=== PATIENT | male | born 1985 | race Two or more races ===

== ENCOUNTER 2021-01-12 09:50 | Emergency (ER) | payer SELFPAY ==
[~2021-01-12] VITALS: Ht 177.8 cm; Wt 77.1 kg
--- NOTE | 2021-01-12 09:50 | NUR ---
PT BIBRA FROM [facility]RIENDS HOUSE C/O OD ON METH, GHB AND OTHER UNKNOWN DRUG. NARCAN 4MG IV GIVEN BY EMS TANK [employer]MIN[employer] GAUGER. PT IS AAOX1. NOT IN RESPIRATORY DISTRESS, HOOKED TO [employer], KEPT RESTED AND COMFORTABLE. WILL CONTINUE TO MONITOR.
--- NOTE | 2021-01-12 09:50 | NUR ---
NARCAN 2MG IVP GIVEN PER .
--- NOTE | 2021-01-12 09:57 | NUR ---
URINE SPECIMEN COLLECTED AND SENT TO LAB.
[2021-01-12] MEDS ORDERED: LORAZEPAM INJ 2 MG/ML VIAL IVP ONE (10:00)
[2021-01-12] MEDS ORDERED: LORAZEPAM INJ 2 MG/ML VIAL ONE (10:03)
--- NOTE | 2021-01-12 10:10 | NUR ---
KATIE [phone] FRIEND
[2021-01-12 10:11] LABS: BILIRUBIN,URINE Negative (NEGATIVE); COLOR,URINE YELLOW (YELLOW); LEUKOCYTE ESTERASE ,URINE Negative (NEGATIVE); NITRITE, URINE Negative (NEGATIVE); PH,URINE 5.5 (5.0-8.0); PROTEIN,URINE Negative (NEGATIVE); UGLUCOSE Negative (NEGATIVE)
[2021-01-12 10:25] LABS: BACTERIA,URINE Rare /HPF (None Seen); RBC,URINE NONE SEEN /HPF (0-2); SQUAMOUS EPITHELIAL CELL,UR Few /HPF (None Seen); WBC,URINE NONE SEEN /HPF (0-3)
--- NOTE | 2021-01-12 10:25 | NUR ---
PHLEB AT BEDSIDE FOR BLOOD DRAW.
[2021-01-12 10:29] LABS: BASOPHILS % (AUTO) 0.3 % (0.0-2.0); EOSINOPHILS % (AUTO) 1.6 % (0.0-6.0); HEMATOCRIT 38 % (39-51); HEMOGLOBIN 12.6 g/dL (13.5-17.5); LYMPHOCYTES # (AUTO) 2.3 /CMM (0.8-4.8); LYMPHOCYTES % (AUTO) 17.1 % (20.0-44.0); MEAN CORPUSCULAR HGB CONC 33 g/dl (31.0-36.0); MEAN CORPUSCULAR VOLUME 95 fL (80-96); MONOCYTES % (AUTO) 7.7 % (2.0-12.0); NEUTROPHILS # (AUTO) 9.8 /CMM (1.8-8.9); NEUTROPHILS % (AUTO) 73.3 % (43.0-81.0); PLATELET COUNT (AUTO) 295 /CMM (150-450); RED BLOOD CELL COUNT(AUTO) 3.96 MIL/uL (4.5-6.0); WHITE BLOOD COUNT (AUTO) 13.3 K/uL (4.3-11.0)
[2021-01-12] MEDS ORDERED: NALOXONE HCL 0.4 MG/ML AMPUL IV ONE (10:30)
[2021-01-12 10:56] LABS: ALANINE AMINOTRANSFERASE 63 U/L (12-78); ALBUMIN 3.4 g/dL (3.4-5.0); ALCOHOL, BLOOD < 3 mg/dL (0-0); ALKALINE PHOSPHATASE 52 U/L (46-116); ASPARTATE AMINOTRANSFERASE 24 U/L (15-37); BILIRUBIN,DIRECT 0.1 mg/dL (0.0-0.2); BILIRUBIN,TOTAL 0.3 mg/dL (0.2-1.0); CARBON DIOXIDE 26 mmol/L (21-32); CHLORIDE 107 mmol/L (98-107); GLUCOSE 103 mg/dL (74-106); SODIUM SERUM 142 mmol/L (136-145); TOTAL PROTEIN, SERUM 6.4 g/dL (6.4-8.2); UREA NITROGEN, BLOOD 15 mg/dL (7-18)
[2021-01-12 10:59] LABS: ACETAMINOPHEN < 2 ug/ml (10-30)
--- NOTE | 2021-01-12 13:14 | NUR ---
KATIE PARKER'S FRIEND WILL BE HERE IN 30MINS.
--- NOTE | 2021-01-12 13:45 | NUR ---
WAS PICKED UP BY HIS FRIEND KATIE
--- NOTE | 2021-01-12 13:45 | NUR ---
Patient discharged to home in stable condition. Written and verbal after care instructions given. Patient verbalizes understanding of instruction.IV removed. Catheter intact and site benign. Pressure and 4x4 applied to site. No bleeding noted. Pt ambulatory with a steady gait
[2021-01-12 13:46] VITALS: BP 121/81
== END 2021-01-12 13:46 | disposition home or self-care (01) ==
LOC: ER 09:53
DX: T40.691A Poisoning by other narcotics, accidental (unintentional), initial encounter (principal); T43.621A Poisoning by amphetamines, accidental (unintentional), initial encounter; T41.291A Poisoning by other general anesthetics, accidental (unintentional), initial encounter; F19.10 Other psychoactive substance abuse, uncomplicated; R94.31 Abnormal electrocardiogram [ECG] [EKG]; Y92.89 Other specified places as the place of occurrence of the external cause
CPT/HCPCS: 36415; 51702; 71045; 80048; 80076; 80299; 80307; 80320; 81001; 84484; 85025; 93005; 96374; 96375; 99285; J2060; J2310; G0480